=== PATIENT | female | born 1950 | race Asian ===

== ENCOUNTER 2019-01-31 13:57 | Emergency (ER) | payer MEDICARE, MEDICAID ==
--- NOTE | 2019-01-31 14:35 | RAD ---
EXAM: XR Hand Rt 3 View STANDARD PROVIDED CLINICAL HISTORY: Pain FINDINGS: There is no evidence for fracture or other acute osseous abnormality. Alignment appears anatomic. Maida nt spaces appear preserved. IMPRESSION: No evidence for an acute osseous abnormality. If there is persistent clinical concern, conservative m anagement and follow-up imaging advised.
--- NOTE | 2019-01-31 14:37 | RAD ---
EXAM: XR Tib Fib Rt Leg 2 View PROVIDED CLINICAL HISTORY: Pain FINDINGS: There is no evidence for fracture or other acute osseous abnormality. Alignment appears anatomic. Maida nt spaces appear preserved. IMPRESSION: No evidence for an acute osseous abnormality. If there is persistent clinical concern, conservative m anagement and follow-up imaging advised.
--- NOTE | 2019-01-31 14:37 | RAD ---
EXAM: XR Hand Lt 3 View STANDARD PROVIDED CLINICAL HISTORY: Pain FINDINGS: There is no evidence for acute fracture or other acute osseous abnormality. Remote ununited terminal tuft fracture involving the index digit. Prominent first CMC degenerative change. Alignment appears anatomic. Joint spaces appear preserved. IMPRESSION: No evidence for an acute osseous abnormality. If there is persistent clinical concern, conservative m anagement and follow-up imaging advised.
== END 2019-01-31 14:48 | disposition home or self-care (01) ==
LOC: SCSER 13:57
DX: S43.401A Unspecified sprain of right shoulder joint, initial encounter (principal); S60.012A Contusion of left thumb without damage to nail, initial encounter; S60.011A Contusion of right thumb without damage to nail, initial encounter; S80.11XA Contusion of right lower leg, initial encounter; E03.9 Hypothyroidism, unspecified; I10 Essential (primary) hypertension; Z79.899 Other long term (current) drug therapy; V43.62XA Car passenger injured in collision with other type car in traffic accident, initial encounter

== ENCOUNTER 2019-08-02 15:28 | Emergency (ER) | payer MEDICARE, OTHER ==
[2019-08-02 16:25] LABS: #Eosinphils 0.5 thou/uL (0.0-0.7); #Lymphocytes 2.4 thou/uL (1.20-3.40); #Monocytes 0.4 thou/uL (0.11-0.59); #Neutrophils 4.9 thou/uL (1.40-6.50); %Basophils 0.6 % (0.0-1.0); %Eosinophils 5.8 % (0.0-10.0); %Lymphocytes 29.3 % (21.0-51.0); %Monocytes 5.4 % (0.0-10.0); %Neutrophils 58.9 % (42.0-75.0); Hemoglobin 10.8 g/dL (12.0-16.0); Mean Corpuscular HGB CONC 35.9 g/dL (32.0-36.0); Mean Corpuscular Hemoglobin 33.8 pg (27.0-31.0); Mean Platelet Volume 8.9 fL (7.4-10.4); Platelet Count 251 thou/uL (130-400); RBC Distribution Width 11.4 % (11.5-14.5); Red Blood Cell (RBC) Count 3.21 mill/uL (4.20-5.40); White Blood Cell (WBC) Count 8.2 thou/uL (4.8-10.8)
--- NOTE | 2019-08-02 16:30 | RAD ---
Left ankle 3 views HISTORY: Pain. FINDINGS: Mortise and talar dome are intact. Soft tissue swelling about the ankle. No acute fracture, dislocation, or aggressive osseous erosions. IMPRESSION : No acute osseous abnormalities are demonstrated.
--- NOTE | 2019-08-02 16:31 | RAD ---
Left lower leg 2 views HISTORY: Pain. FINDINGS: Tibia and fibula are intact. No acute fracture, dislocation, or radiopaque foreign bodies. IMPRESSION : No acute osseous abnormalities are demonstrated.
--- NOTE | 2019-08-02 16:44 | ULT ---
Venous duplex sonogram left lower extremity HISTORY: Left leg pain and edema. FINDINGS: The left common femoral vein and greater saphenous junction were evaluated along with the f emoral, deep femoral, popliteal, and posterior tibial veins. There is good color and spectral Doppler flow, compression, and augmentation. IMPRESSION : Normal exam.
[2019-08-02 16:50] LABS: ALT (SGPT) 14 U/L (8-55); AST (SGOT) 22 U/L (5-34); Albumin 4.3 g/dL (3.4-4.8); Alkaline Phosphatase 47 U/L (40-110); Anion Gap 12 mmol/L (10-20); BUN (Urea Nitrogen) 11 mg/dL (9.8-20.1); Bilirubin, Total 0.2 mg/dL (0.2-1.2); CK (CPK) 109 U/L (29-168); Calc. Creatinine Clearance 0 mL/min (70-130); Calcium 9.5 mg/dL (7.8-10.44); Carbon Dioxide 27 mmol/L (23-31); Chloride 104 mmol/L (98-107); Estimated GFR-MDRD 78; Globulin 3.1 g/dL (2.4-3.5); Glucose 85 mg/dL (80-115); Potassium 4.1 mmol/L (3.5-5.1); Protein, Total 7.4 g/dL (6.0-8.3); Sodium 139 mmol/L (136-145)
== END 2019-08-02 17:45 | disposition home or self-care (01) ==
LOC: ERS 15:28
DX: S96.912A Strain of unspecified muscle and tendon at ankle and foot level, left foot, initial encounter (principal); I10 Essential (primary) hypertension; E03.9 Hypothyroidism, unspecified; Z79.82 Long term (current) use of aspirin; Z79.899 Other long term (current) drug therapy; X58.XXXA Exposure to other specified factors, initial encounter
CPT/HCPCS: 36415; 80053; 82550; 85025; 85379; 99214; G0463

== ENCOUNTER 2020-12-18 08:10 | Outpatient (CLI) | payer MEDICARE, MEDICAID ==
[2020-12-18 10:23] LABS: #Eosinphils 0.5 thou/uL (0.0-0.7); #Monocytes 0.5 thou/uL (0.11-0.59); #Neutrophils 3.6 thou/uL (1.40-6.50); %Basophils 0.6 % (0.0-1.0); %Eosinophils 7.1 % (0.0-10.0); %Lymphocytes 30.8 % (21.0-51.0); %Monocytes 6.9 % (0.0-10.0); %Neutrophils 54.6 % (42.0-75.0); Hemoglobin 12.3 g/dL (12.0-16.0); Mean Corpuscular HGB CONC 33.9 g/dL (32.0-36.0); Mean Corpuscular Hemoglobin 32.1 pg (27.0-31.0); Mean Corpuscular Volume 94.7 fL (78.0-98.0); Mean Platelet Volume 8.5 fL (7.4-10.4); Platelet Count 303 thou/uL (130-400); RBC Distribution Width 11.4 % (11.5-14.5); Red Blood Cell (RBC) Count 3.84 mill/uL (4.20-5.40); White Blood Cell (WBC) Count 6.6 thou/uL (4.8-10.8)
[2020-12-18 10:48] LABS: Hemoglobin A1c 5.4 % (4.0-6.0)
[2020-12-18 12:02] LABS: ALT (SGPT) 19 U/L (8-55); AST (SGOT) 26 U/L (5-34); Albumin 4.3 g/dL (3.4-4.8); Alkaline Phosphatase 57 U/L (40-110); Anion Gap 10 mmol/L (10-20); BUN (Urea Nitrogen) 11 mg/dL (9.8-20.1); Bilirubin, Total 0.3 mg/dL (0.2-1.2); Calc. Creatinine Clearance 0 mL/min (70-130); Calcium 9.9 mg/dL (7.8-10.44); Carbon Dioxide 28 mmol/L (23-31); Cardiac Risk 3.8 (Less than 4.5); Chloride 104 mmol/L (98-107); Cholesterol 216 mg/dl (< 200 Desired); Globulin 3.2 g/dL (2.4-3.5); Glucose 89 mg/dL (83-110); HDL Cholesterol 57 mg/dL (>60 Neg Risk); LDL Cholesterol, Calculated 134 mg/dL; Potassium 4.2 mmol/L (3.5-5.1); Protein, Total 7.5 g/dL (5.8-8.1); Sodium 138 mmol/L (136-145); Triglycerides 124 mg/dL (Less than 150)
== END 2020-12-18 08:11 | disposition home or self-care (01) ==
LOC: SCSRAD 08:10
PROVIDERS: ATTEND Family Medicine
DX: M79.674 Pain in right toe(s) (principal); E03.9 Hypothyroidism, unspecified; I10 Essential (primary) hypertension
CPT/HCPCS: 36415; 80053; 80061; 83036; 84443; 85025

== ENCOUNTER 2022-06-06 12:53 | Outpatient (CLI) | payer OTHER, MEDICAID | END 2022-06-06 12:54 | disposition home or self-care (01) | LOC: SCSRAD 12:53 | PROVIDERS: ATTEND Family Medicine | DX: M25.511 Pain in right shoulder (principal) ==